=== PATIENT | male | born 1950 | race Caucasian/White ===

== ENCOUNTER 2019-09-20 00:25 | Day surgery (SDC) | payer MEDICARE, OTHER, SELFPAY ==
[2019-09-14 15:04] VITALS: BMI 28.7
[2019-09-20 06:34] VITALS: BP 145/83; PULSE 84; RESP 16; TEMP 36.4; O2SAT 97; BMI 30.2
--- NOTE | 2019-09-20 06:43 | P.PNAN_ITS ---
Anes - Initial Pre Proc Eval Procedure: Operation Date: 09/20/19 07:30 Proposed Procedures p Screening Colonoscopy - Rd Ruiz MD Date/Time: 09/20/19 06:43 Surgeon: Rd Ruiz MD Pre Op Diagnosis: Neoplasm Screening Patient Data Age: 69 Gender: M Height: 5 ft 10 in Weight: 95.5 kg Last Vital Signs Temp 36.4 C L 09/20/19 06:34 Pulse 84 09/20/19 06:34 Resp 16 09/20/19 06:34 BP 145/83 H 09/20/19 06:34 Pulse Ox 97 09/20/19 06:34 Allergies Allergy/AdvReac Type Severity Reaction Status Date / Time No Known Allergies Verified 09/20/19 06:32 Home Medications Medication Instructions Recorded Confirmed Type fexofenadine 180 mg PO DAILY 09/14/19 09/14/19 History montelukast 10 mg PO DAILY 09/14/19 09/14/19 History simvastatin 40 mg PO DAILY 09/14/19 09/14/19 History Patient hx anesthesia problems: none Family hx anesthesia problems: none [facility] Past Medical History Medical History (Updated 09/20/19 @ 06:44 by Derek Hayden MD) Ex-smoker for less than 1 year Hyperlipidemia Obesity Anes - Eval Final PreProcedure Day of Procedure 09/20/19 06:43 Patient weight: obese Heart: regular rate and rhythm Lungs: clear to auscultation Airway: Mallampati scale class II Neurological: alert and oriented Last oral intake: >/= 8 hours ASA classification: III Emergent: no Anesthetic plan: proceed Anesthesia type and monitoring: general GIVS and standard monitoring Informed Consent: The patient's anesthetic plan and its attendant risks and benefits were discussed with the patient/family/POA. Questions were solicited and answers provided to the satisfaction of the patient/family/POA.
--- NOTE | 2019-09-20 06:53 | PM.HPGS ---
History of Present Illness History of Present Illness Consent: Risks, benefits, and alternatives have been discussed and questions answered. Patient agrees to proceed with procedure. Chief complaint: Neoplasm Screening Narrative: Breezy Temple is a 69 year old W male Referred for screening colonoscopy. The last colonoscopy was 10 years ago. There is no family history of colon cancer. Patient is asymptomatic. [facility]LY [facility] Past Medical History Medical History Ex-smoker for less than 1 year Hyperlipidemia Obesity Surgical History Surgical History (Updated 09/20/19 @ 06:[address] Ru[address] MD) H/O hemorrhoidectomy S/P left inguinal herniorrhaphy Meds Home Medications and Allergies Home Medications Medication Instructions Recorded Confirmed Type fexofenadine 180 mg PO DAILY 09/14/19 09/14/19 History montelukast 10 mg PO DAILY 09/14/19 09/14/19 History simvastatin 40 mg PO DAILY 09/14/19 09/14/19 History Allergies Allergy/AdvReac Type Severity Reaction Status Date / Time No Known Allergies Verified 09/20/19 06:32 Vital Signs Vital Signs - 24 hr 09/20/19 06:34 Temperature 36.4 C L Pulse Rate 84 Respiratory Rate 16 Blood Pressure 145/83 H Pulse Oximetry 97 Exam Const: Orientation/consciousness: patient oriented x3 Resp: Auscultation: clear to auscultation bilaterally Cardio: Rate: regular rate Rhythm: regular rhythm Heart sounds: no murmurs GI: GI Palp: Yes Soft to palpation, No Tenderness to palpation present (GI), Yes No hepatosplenomegaly present and No Palpable mass present Auscultation: normal bowel sounds Neuro: General: patient oriented x3 and no focal motor deficits Extrem: General: no pedal edema Assessment and Plan Additional Plan screening colonoscopy in average risk patient
[2019-09-20] MEDS: LACTATED RINGERS 1,000 ML 150 ML IV CONT (06:54)
[2019-09-20 07:53] VITALS: BP 125/61; PULSE 74; RESP 22; O2SAT 100
[2019-09-20 08:03] VITALS: BP 109/60; PULSE 73; RESP 18; O2SAT 97
[2019-09-20 08:13] VITALS: BP 112/56; PULSE 80; RESP 17; O2SAT 100
== END 2019-09-20 08:33 | disposition home or self-care (01) ==
PROVIDERS: PCP Family Medicine Sports Medicine; Visit Provider Internal Medicine Gastroenterology
PROC: 0DJD8ZZ Inspection of Lower Intestinal Tract, Via Natural or Artificial Opening Endoscopic (ICD-10-PCS; CPT 45378; principal; 2019-09-20 07:30)
DX: Z12.11 Encounter for screening for malignant neoplasm of colon (principal); D12.0 Benign neoplasm of cecum; K64.4 Residual hemorrhoidal skin tags; E78.5 Hyperlipidemia, unspecified; Z87.891 Personal history of nicotine dependence; E66.9 Obesity, unspecified; Z68.30 Body mass index [BMI] 30.0-30.9, adult
CPT/HCPCS: 45385; 45380; 88305; J2001; J2704; J7120